=== PATIENT | female | born 1970 | race Caucasian/White ===

== ENCOUNTER → 2018-10-24 | Outpatient (CLI) | payer OTHER | END | disposition home or self-care (01) | LOC: CFH 11:44 | PROVIDERS: ATTEND Nurse Practitioner Family | DX: M47.816 Spondylosis without myelopathy or radiculopathy, lumbar region (principal); M46.1 Sacroiliitis, not elsewhere classified | CPT/HCPCS: 72114 ==

== ENCOUNTER 2018-12-19 16:50 | Outpatient (CLI) | payer OTHER ==
[2018-12-19] MEDS ORDERED: GADOBUTROL 10 MMOL/10 ML PFS ONE (18:24)
== END 2018-12-19 23:59 | disposition home or self-care (01) ==
LOC: RAD 16:50
PROVIDERS: ATTEND Nurse Practitioner Family
DX: D48.1 Neoplasm of uncertain behavior of connective and other soft tissue (principal); R22.2 Localized swelling, mass and lump, trunk
CPT/HCPCS: 73220; A9585

== ENCOUNTER 2019-04-21 16:28 | Emergency (ER) | payer OTHER ==
[~2019-04-21] VITALS: Ht 160 cm; Wt 97.2 kg
[2019-04-21 16:33] VITALS: BP 146/85
[2019-04-21] MEDS ORDERED: LIDOCAINE-MPF 1%, 5ML ONE ×2 (17:02→17:34)
[2019-04-21] MEDS ORDERED: DIPH,PERTUSS(ACELL),TET VAC/PF 0.5 ML IM-VACC ONE ×2 (17:55→18:00)
== END 2019-04-21 18:19 | disposition home or self-care (01) ==
LOC: ED 18:00
DX: L03.032 Cellulitis of left toe (principal)
CPT/HCPCS: 11730; 90471; 90715